=== PATIENT | male | born 1950 | race Caucasian/White ===

== ENCOUNTER 2017-07-09 20:03 | Inpatient (IN) | payer MEDICAID, MEDICARE, OTHER ==
[2017-07-09] MEDS ORDERED: Sodium Bicarbonate (8.4%) 50 Meq Syringe ONE ×2 (20:06→22:36)
[2017-07-09] MEDS: DOBUTamine 500mg/250ml D5W 500 MG/250 ML BAG IV SCH (20:33)
[2017-07-09] MEDS: DOPamine 400mg/250ml D5W 400 MG/250 ML BAG IV PRN (20:33)
[2017-07-09 20:48] LABS: ARTERIAL BLOOD GAS HCO3 5.8 mmol/L (21-28); ARTERIAL BLOOD GAS O2 SAT 84.9 % (95-98); ARTERIAL BLOOD GAS PCO2 74 mm/Hg (35-45); ARTERIAL BLOOD GAS PH 6.81 (7.35-7.45); ARTERIAL BLOOD GAS PO2 66 mm/Hg (80-100); ARTERIAL BLOOD GAS TCO2 14.1 mmol/L (22-28)
--- NOTE | 2017-07-09 20:48 | C.PDOC ---
History Of Present Illness <Ginger Chaney - Last Filed: 07/09/17 22:33> <Ricci Mcclain - Last Filed: 07/09/17 22:41> pt found unresponsive on the street. ems was called. BLS came and started cpr. No shocks given. In ed pt was asystolic. As per daughter pt was on his way to pickle processor her daugther and never showed up. Some one on the street asked if he was ok, and he stated he was short of breath.No other info available at the present time. Police initiated the cpr before bls showed up (Ricci Mcclain) <Ginger Chaney - Last Filed: 07/09/17 22:33> History Per: EMS Reason For Code Blue: Full Arrest Circumstances: Brought To ED By EMS Arrest Witnessed By: No One CPR Initiated Prior To MD Arrival?: Yes Down-Time Before ACLS: Mins (40) Treatment Initiated Prior To MD Arrival: Yes: CPR, BVM Ventilations - Initial Findings Mentation: Unresponsive Respirations: None (Assisted) Pulse: None Rhythm: Asystole <Ricci Mcclain - Last Filed: 07/09/17 22:41> Time Seen by Provider: 07/09/17 20:03 Chief Complaint (Nursing): Cardiac Arrest Past Medical History Reviewed: Historical Data, Nursing Documentation, Vital Signs - Medical History PMH: CAD, CHF, Diabetes (type 2), HTN, Sleep Apnea (Last sleep study 2009) Surgical History: Coronary Stent (January 2013, BEBETO to RCA) Family History: States: No Known Family Hx - Social History Hx Tobacco Use: No Hx Alcohol Use: No Hx Substance Use: No - Immunization History Hx Tetanus Toxoid Vaccination: No Hx Influenza Vaccination: No Hx Pneumococcal Vaccination: No <Ricci Mcclain - Last Filed: 07/09/17 22:41> Vital Signs: Last Vital Signs Temp Pulse 59 L 07/09/17 21:38 Resp 15 07/09/17 21:38 BP 105/37 L 07/09/17 21:38 Pulse Ox 100 07/09/17 21:38 - [facility] Procedures INJECT ANTICOAGULANT (02/11/13) INSERTION OF ONE VASCULAR STENT (02/11/13) INSRT OF DRUG-ELUTING CORON ARTERY STENTS(S) (02/11/13) LEFT HEART CARDIAC CATH (02/07/13) LT HEART ANGIOCARDIOGRAM (02/07/13) PERCUTANEOUS TRANSLUMINAL CORONARY ANGIOPLASTY [PTCA] (02/11/13) PROCEDURE ON SINGLE VESSEL (02/11/13) VACCINATION NEC (02/07/13) Review Of Systems Review Of Systems: ROS cannot be obtained secondary to pt's inabilty to answer questions. <Ricci Mcclain - Last Filed: 07/09/17 22:41> Physical Exam - Physical Exam Appears: In Acute Distress Skin: Pale Head: Normacephalic Eye(s): bilateral: Other (fixed, dilated) Nose: Normal Neck: Supple Chest: Symmetrical Cardiovascular: Other (asystole) Respiratory: Other (no spontaneous resp) Gastrointestinal/Abdominal: Soft, Distention Back: Normal Inspection Extremity: Pedal Edema Extremity: Bilateral: Atraumatic Neurological/Psych: Other (unresponsive, ) Gait: Unable To Assess <Ricci Mcclain - Last Filed: 07/09/17 22:41> ED Course And Treatment - Laboratory Results Result Diagrams: 07/09/17 20:55 07/09/17 20:55 <Ginger Chaney - Last Filed: 07/09/17 22:33> - Laboratory Results Result Diagrams: 07/09/17 20:55 07/09/17 20:55 ECG: Interpreted By Me, Viewed By Me ECG Rhythm: Nonspecific Changes O2 Sat by Pulse Oximetry: 0 Pulse Ox Interpretation: Abnormal - Radiology CXR: Interpreted by Me, Viewed By Me Progress Note: see code sheet. spoke with jose alfredo . is aware of pt's critical condition. spoke with dr holbrook- will come and see the pt in the ed. spoke with dr norton. will see the pt. placed right humeral head IO without any difficulty. repeat cxr ij in olace no pneumo <Ricci Mcclain - Last Filed: 07/09/17 22:41> Endotracheal Intubation - Endotracheal Intubation Intubated With ETT Size: 75 Blade Type Used: Curved Indication: Respiratory Failure Intubated: Orally Pre-Intubation Airway Assessment: Ventilated And Oxygenated Post-Intubation Assessment: ETT Secured AT (cm): (23), Breath Sounds Equal Bilat , Placement Confirmed Via CXR, Color Change W/End Tidal CO2 Detector, Oxygen Saturation: (100) <Ricci Mcclain - Last Filed: 07/09/17 22:41> Central Line Placement - Central Line Placement Indication: Emergent IV Access Central Line Placement: Right: Internal Jugular The Area Was Thoroughly Prepared With: Chlorhexidine Procedure: Triple Lumen, Placed Using Standard Seldinger Technique, Catheter Was Sewn Into Place, Sterile Dressing Placed Over Line, Procedure Tolerated Well , CXR Ordered To Confirm Placement <Ginger Chaney - Last Filed: 07/09/17 22:33> Disposition <Ginger Chaney - Last Filed: 07/09/17 22:33> Discussed With Dr.: Diana Norton Comment: accepted the pt on her servie and took over the care at 9:17 PM Doctor Will See Patient In The: ED Counseled Patient/Family Regarding: Studies Performed - Disposition Disposition Time: :41 <Ricci Mcclain - Last Filed: 07/09/17 22:41> - Disposition Disposition: HOSPITALIZED Condition: CRITICAL - Clinical Impression Clinical Impression: Cardiac arrest, Pulmonary edema Critical Care Time - Critical Care Note Total Time (in mins): 60 Documented critical care: time excludes all time spent performing seperately billable procedures. <Ricci Mcclain - Last Filed: 07/09/17 22:41> Decision To Admit <Ginger Chaney - Last Filed: 07/09/17 22:33> - Pt Status Changed To: Hospital Disposition Of: Inpatient - Admit Certification Admit to Inpatient:: After my assessment, the patient will require hospitalization for at least two midnights. This is because of the severity of symptoms shown, intensity of services needed, and/or the medical risk in this patient being treated as an outpatient. - InPatient: Physician Admission Certification:: After my assessment, the patient will require hospitalization for at least two midnights. This is because of the severity of symptoms shown, intensity of services needed, and/or the medical risk in this patient being treated as an outpatient. - . Bed Request Type: ICU Admitting Physician: Diana Norton <Ricci Mcclain - Last Filed: 07/09/17 22:41> - . Patient Diagnosis: Cardiac arrest, Pulmonary edema
[2017-07-09 20:58] LABS: BASO % 0.6 % (0.0-2.0); EOS # 0.4 K/uL (0.0-0.7); EOS % 4.6 % (0.0-4.0); HEMOGLOBIN 9.3 g/dL (12.0-18.0); LYMPH # 3.3 K/uL (1.0-4.3); LYMPH % 38.3 % (20.0-40.0); MEAN CELL VOLUME 85.4 fL (80.0-94.0); MEAN CORPUSCULAR HEMOGLOBIN 25.6 pg (27.0-31.0); MEAN PLATELET VOLUME 7.9 fL (7.2-11.7); MONO # 0.4 K/uL (0.0-0.8); MONO % 4.9 % (0.0-10.0); NEUT # 4.5 K/uL (1.8-7.0); NEUT % 51.6 % (50.0-75.0); NRBC % 0.2 % (0.0-2.0); RBC 3.64 Mil/uL (4.40-5.90); RED CELL DISTRIBUTION WIDTH 16.8 % (11.5-14.5); WHITE BLOOD COUNT 8.7 K/uL (4.8-10.8)
[2017-07-09 21:07] LABS: INR 1.1; PROTHROMBIN TIME 12.6 SECONDS (9.7-12.2)
[2017-07-09 21:22] LABS: ALT/SGPT 225 U/L (21-72); AST/SGOT 225 U/L (17-59); BLOOD UREA NITROGEN 41 mg/dL (9-20); CALCIUM 7.2 mg/dl (8.6-10.4); GFR AFRICAN-AMERICAN 46; GFR NON-AFRICAN AMERICAN 38; HDL CHOLESTEROL 19 mg/dL (30-70)
[2017-07-09 21:23] LABS: ALB/GLOB RATIO 1.1 (1.0-2.1)
[2017-07-09 21:34] LABS: B-TYPE NATRIURETIC PEPTIDE 3890 pg/mL (0-900); CK-MB 2.32 ng/mL (0.0-3.38); LDL CHOLESTEROL < 30 mg/dL (0-129)
--- NOTE | 2017-07-09 21:40 | CP.CCUPN ---
CCU Subjective - Physician Review Events Since Last Encounter (Free Text): 07/09/17 22:12 The Patient was seen and examined at the bedside, Medical records reviewed, and management issues were discussed and formulated with the house staff. 67 years old male with PMHx of HTN, HLD, DM (type 2), CAD S/p coronary Stent ( January 2013, BEBETO to RCA) and Sleep Apnea (Last sleep study 2009) Who found unresponsive on the street, 911 called by bystanders. As per ER records, Someone on the street asked if he was ok, and he stated he was short of breath. As per daughter pt was on his way to pick up operator her daugther and never showed up. BLS came and started CPR, No shocks or medications given. In ED patient was asystolic, CPR/ACLS initiated, he was orally intubated, Endotracheal tube 7.5, 23 at the lip line ROSC in 10 minutes Upon my arrival to ER, he is totally unresponsive to all stimuli, comatose, Patient very hypotensive despite being on large dose of 2 vasopressors, central line placed R IJ. Patient will have Head CT scan as well as chest/Abd/Pelvis then admitted to the ICU for further managements. Discussed with the family in details diagnosis, treatment plans and alternatives , Went over rationale, procedure, potential risks, recovery etc CCU Objective - Vital Signs / Intake & Output Vital Signs (Last 4 hours): Vital Signs Pulse Resp BP Pulse Ox 07/09/17 21:20 0 L 07/09/17 20:12 0 L 0 L 0/0 L 0 L Intake and Output (Last 8hrs): Intake & Output 07/09/17 07/09/17 07/09/17 06:59 14:59 22:59 Weight 172 lb - Physical Exam Physical Exam Limitations: Positive for: Altered Mental Status, Clinical Condition, Uncooperative Head: Positive for: Atraumatic, Normocephalic Pupils: Positive for: Non-Reactive. Negative for: Pinpoint Extroacular Muscles: Positive for: EOMI. Negative for: Gaze Palsy Conjunctiva: Positive for: Normal. Negative for: Injected, Icteric Mouth: Positive for: Moist Mucous Membranes Nose (Internal): Positive for: Normal Inspection Neck: Positive for: JVD. Negative for: MIDLINE TENDERNESS, Lymphadenopathy Respiratory/Chest: Positive for: Decreased Breath Sounds, Rales. Negative for: Clear to Auscultation, Wheezes, Tachypneic Cardiovascular: Positive for: Regular Rate and Rhythm, Normal S1, S2, Peripheal Pulses Present, Bradycardic. Negative for: Murmurs, Tachycardic Abdomen: Positive for: Distention, Normal Bowel Sounds. Negative for: Tenderness, Peritoneal Signs Upper Extremity: Positive for: Normal Inspection, Capillary Refill < 2s Lower Extremity: Positive for: Edema, Capillary Refill < 2 s Neurological: Positive for: Other (Patient unresponsive to painful stimuli) - Medications Active Medications: Active Medications Generic Name Dose Route Start Last Admin Trade Name Freq PRN Reason Stop Dose Admin Dobutamine HCl/Dextrose 500 mg in 250 mls @ 46.811 mls/hr 07/09/17 21:30 Dobutamine/Dextrose 5% 500mg/250ml IV .Q5H21M GABY 20 MCG/KG/MIN Dopamine HCl/Dextrose 400 mg in 250 mls @ 58.514 mls/hr 07/09/17 21:20 Dopamine 400mg/250ml D5w IV .Q4H17M PRN TITRATE PER MD ORDER 20 MCG/KG/MIN - Patient Studies Lab Studies: Lab Studies 07/09/17 07/09/17 07/09/17 Range/Units 20:55 20:55 20:55 WBC (4.8-10.8) K/uL RBC (4.40-5.90) Mil/uL Hgb (12.0-18.0) g/dL Hct (35.0-51.0) % MCV (80.0-94.0) fL MCH (27.0-31.0) pg MCHC (33.0-37.0) g/dL RDW (11.5-14.5) % Plt Count (130-400) K/uL MPV (7.2-11.7) fL Neut % (Auto) (50.0-75.0) % Lymph % (Auto) (20.0-40.0) % [place] % (Auto) (0.0-10.0) % Eos % (Auto) (0.0-4.0) % Baso % (Auto) (0.0-2.0) % Neut # (1.8-7.0) K/uL Lymph # (1.0-4.3) K/uL [place] # (0.0-0.8) K/uL Eos # (0.0-0.7) K/uL Baso # (0.0-0.2) K/uL PT 12.6 H (9.7-12.2) SECONDS INR 1.1 APTT 42 H (21-34) SECONDS Puncture Site pCO2 (35-45) mm/Hg pO2 (80-100) mm/Hg HCO3 (21-28) mmol/L ABG pH (7.35-7.45) ABG Total CO2 (22-28) mmol/L ABG O2 Saturation (95-98) % ABG Base Excess (-2.0-3.0) mmol/L Yordy Test ABG Potassium (3.6-5.2) mmol/L A-a O2 Difference mm/Hg Respiratory Index Sodium 138 (132-148) mmol/l Chloride 109 H (98-107) mmol/L Glucose (75-110) mg/dl Lactate (0.7-2.1) mmol/L Vent Mode Mechanical Rate FiO2 % Tidal Volume PEEP Crit Value Called To Crit Value Called By Crit Value Read Back Blood Gas Notified Time Potassium 5.7 H (3.6-5.2) mmol/L Carbon Dioxide 13 L (22-30) mmol/L Anion Gap 22 H (10-20) BUN 41 H (9-20) mg/dL Creatinine 1.8 H (0.8-1.5) mg/dL Est GFR ( Amer) 46 Est GFR (Non-Af Amer) 38 POC Glucose (mg/dL) (65-110) mg/dL Random Glucose 124 H (75-110) mg/dL Hemoglobin A1c 5.3 (4.2-6.5) % Calcium 7.2 L (8.6-10.4) mg/dl Total Bilirubin 0.4 (0.2-1.3) mg/dL AST 225 H (17-59) U/L ALT 225 H D (21-72) U/L Alkaline Phosphatase 77 (38-126) U/L Total Creatine Kinase 76 (55-170) U/L Total Protein 5.8 L (6.3-8.3) g/dL Albumin 3.0 L (3.5-5.0) g/dL Globulin 2.8 (2.2-3.9) gm/dL Albumin/Globulin Ratio 1.1 (1.0-2.1) Triglycerides 96 (0-149) mg/dL Cholesterol 58 (0-199) mg/dL HDL Cholesterol 19 L (30-70) mg/dL Arterial Blood Potassium (3.6-5.2) mmol/L 07/09/17 07/09/17 07/09/17 Range/Units 20:55 20:44 20:11 WBC 8.7 (4.8-10.8) K/uL RBC 3.64 L (4.40-5.90) Mil/uL Hgb 9.3 L (12.0-18.0) g/dL Hct 31.1 L (35.0-51.0) % MCV 85.4 (80.0-94.0) fL MCH 25.6 L (27.0-31.0) pg MCHC 30.0 L (33.0-37.0) g/dL RDW 16.8 H (11.5-14.5) % Plt Count 214 D (130-400) K/uL MPV 7.9 (7.2-11.7) fL Neut % (Auto) 51.6 (50.0-75.0) % Lymph % (Auto) 38.3 (20.0-40.0) % [place] % (Auto) 4.9 (0.0-10.0) % Eos % (Auto) 4.6 H (0.0-4.0) % Baso % (Auto) 0.6 (0.0-2.0) % Neut # 4.5 (1.8-7.0) K/uL Lymph # 3.3 (1.0-4.3) K/uL [place] # 0.4 (0.0-0.8) K/uL Eos # 0.4 (0.0-0.7) K/uL Baso # 0.0 (0.0-0.2) K/uL PT (9.7-12.2) SECONDS INR APTT (21-34) SECONDS Puncture Site Art pCO2 74 H* (35-45) mm/Hg pO2 66 L (80-100) mm/Hg HCO3 5.8 L* (21-28) mmol/L ABG pH 6.81 L* (7.35-7.45) ABG Total CO2 14.1 L (22-28) mmol/L ABG O2 Saturation 84.9 L (95-98) % ABG Base Excess -23.5 L (-2.0-3.0) mmol/L Yordy Test Na ABG Potassium 5.8 H (3.6-5.2) mmol/L A-a O2 Difference 555.0 mm/Hg Respiratory Index 8.4 Sodium 141.0 (132-148) mmol/l Chloride 113.0 H (98-107) mmol/L Glucose 132 H (75-110) mg/dl Lactate 9.9 H* (0.7-2.1) mmol/L Vent Mode Prvc Mechanical Rate 16 FiO2 100.0 % Tidal Volume 500 PEEP 5 Crit Value Called To Sarahi keith md Crit Value Called By Constance Crit Value Read Back Y Blood Gas Notified Time 2047 Potassium (3.6-5.2) mmol/L Carbon Dioxide (22-30) mmol/L Anion Gap (10-20) BUN (9-20) mg/dL Creatinine (0.8-1.5) mg/dL Est GFR ( Amer) Est GFR (Non-Af Amer) POC Glucose (mg/dL) 213 H (65-110) mg/dL Random Glucose (75-110) mg/dL Hemoglobin A1c (4.2-6.5) % Calcium (8.6-10.4) mg/dl Total Bilirubin (0.2-1.3) mg/dL AST (17-59) U/L ALT (21-72) U/L Alkaline Phosphatase (38-126) U/L Total Creatine Kinase (55-170) U/L Total Protein (6.3-8.3) g/dL Albumin (3.5-5.0) g/dL Globulin (2.2-3.9) gm/dL Albumin/Globulin Ratio (1.0-2.1) Triglycerides (0-149) mg/dL Cholesterol (0-199) mg/dL HDL Cholesterol (30-70) mg/dL Arterial Blood Potassium 5.8 H (3.6-5.2) mmol/L Laboratory Results - last 24 hr 01/11/18 01/11/18 01/11/18 20:11 20:44 20:55 WBC 8.7 RBC 3.64 L Hgb 9.3 L Hct 31.1 L MCV 85.4 MCH 25.6 L MCHC 30.0 L RDW 16.8 H Plt Count 214 D MPV 7.9 Neut % (Auto) 51.6 Lymph % (Auto) 38.3 [place] % (Auto) 4.9 Eos % (Auto) 4.6 H Baso % (Auto) 0.6 Neut # 4.5 Lymph # 3.3 [place] # 0.4 Eos # 0.4 Baso # 0.0 PT INR APTT Puncture Site Art pCO2 74 H* pO2 66 L HCO3 5.8 L* ABG pH 6.81 L* ABG Total CO2 14.1 L ABG O2 Saturation 84.9 L ABG Base Excess -23.5 L Yordy Test Na ABG Potassium 5.8 H A-a O2 Difference 555.0 Respiratory Index 8.4 Sodium 141.0 Chloride 113.0 H Glucose 132 H Lactate 9.9 H* Vent Mode Prvc Mechanical Rate 16 FiO2 100.0 Tidal Volume 500 PEEP 5 Crit Value Called To Sarahi keith md Crit Value Called By Constance Crit Value Read Back Y Blood Gas Notified Time 2047 Potassium Carbon Dioxide Anion Gap BUN Creatinine Est GFR ( Amer) Est GFR (Non-Af Amer) POC Glucose (mg/dL) 213 H Random Glucose Hemoglobin A1c Calcium Total Bilirubin AST ALT Alkaline Phosphatase Total Creatine Kinase Total Protein Albumin Globulin Albumin/Globulin Ratio Triglycerides Cholesterol HDL Cholesterol Arterial Blood Potassium 5.8 H 07/09/17 07/09/17 07/09/17 20:55 20:55 20:55 WBC RBC Hgb Hct MCV MCH MCHC RDW Plt Count MPV Neut % (Auto) Lymph % (Auto) [place] % (Auto) Eos % (Auto) Baso % (Auto) Neut # Lymph # [place] # Eos # Baso # PT 12.6 H INR 1.1 APTT 42 H Puncture Site pCO2 pO2 HCO3 ABG pH ABG Total CO2 ABG O2 Saturation ABG Base Excess Yordy Test ABG Potassium A-a O2 Difference Respiratory Index Sodium 138 Chloride 109 H Glucose Lactate Vent Mode Mechanical Rate FiO2 Tidal Volume PEEP Crit Value Called To Crit Value Called By Crit Value Read Back Blood Gas Notified Time Potassium 5.7 H Carbon Dioxide 13 L Anion Gap 22 H BUN 41 H Creatinine 1.8 H Est GFR ( Amer) 46 Est GFR (Non-Af Amer) 38 POC Glucose (mg/dL) Random Glucose 124 H Hemoglobin A1c 5.3 Calcium 7.2 L Total Bilirubin 0.4 AST 225 H ALT 225 H D Alkaline Phosphatase 77 Total Creatine Kinase 76 Total Protein 5.8 L Albumin 3.0 L Globulin 2.8 Albumin/Globulin Ratio 1.1 Triglycerides 96 Cholesterol 58 HDL Cholesterol 19 L Arterial Blood Potassium EKG/Cardiology Studies: Cardiology / EKG Studies 07/09/17 20:46 ELECTROCARDIOGRAM Stat Comment: Mode Of Transportation: BED Reason For Exam: chest pain Fingerstick Blood Sugar Results: 213 Review of Systems - Review of Systems Systems not reviewed;Unavailable: Intubated Critical Care Progress Note - Extremities/Vascular Does the Patient have a Central Venous Catheter?: Yes Does the Patient need a Central Venous Catheter?: Yes Does the Patient have a Sanabria Catheter?: Yes Does the Patient need a Sanabria Catheter?: Yes Catheter Insertion Criteria: Need for accurate measurement of output in critically ill patient Assessment/Plan (1) Cardiac arrest Current Visit: Yes Status: Acute (2) Pulmonary edema Current Visit: Yes Status: Acute (3) Acute on chronic diastolic CHF (congestive heart failure) Current Visit: No Status: Acute Comment: (4) Prophylactic measure Current Visit: No Status: Acute Comment: Protonix Hold for now, till confirm there is no bleed or trauma (5) Diabetes mellitus Current Visit: No Status: Chronic (6) Hypertension Current Visit: No Status: Chronic (7) Coronary artery disease Current Visit: No Status: Chronic - Assessment and Plan (Free Text) Assessment: Critically ill patient with acute hypoxemic respiratory failure, Respiratory and metabolic acidosis from cardiac arrest, in the sitting of acute pulmonary edema, H/O need to R/O acute TN, also likely SOFY with obesity hypoventilation Worsening renal function with Hyperkalemia, received the hyperkalemia cocktail in ER Admit to ICU for hemodynamic monitoring, mangement of shock (likely cardiogenic ) and further cardiac and neurological work up STAT LABS/LYTES/CBC/Serial cardiac enzymes, XR, EKG Neuro check Q 1H Monitor Respiratory status, full vent support for now IV diuresis if BP permits No need for Antibiotics Monitor urine output Restart outpatient meds BD nebs Q 6H PRN Tight glycemic control, RISS with Coverage Follow up official [place] CT scan Discussed with the family in details diagnosis, treatment plans and alternatives , Cardiology and neurology consult pending further discussion with the family and clinical improvement Code status: Full code Total critical care time 54 minutes
[2017-07-09] MEDS ORDERED: Dextrose 50% SYRINGE Inj (50 ml) IV STA (22:28)
[2017-07-09] MEDS ORDERED: (Novolin R) Insulin Human Regular 100 units/ml vial IV ONE (22:28)
[2017-07-09] MEDS ORDERED: Sodium Bicarbonate (8.4%) 50 Meq Syringe IVP ONE (22:28)
[2017-07-09] MEDS ORDERED: Calcium Gluconate 4.65 mEq/10 ml Inj ONE (22:36)
[2017-07-09] MEDS ORDERED: (Novolin R) Insulin Human Regular 100 units/ml vial ONE (22:37)
[2017-07-09 22:47] LABS: ARTERIAL BLOOD GAS HCO3 16.7 mmol/L (21-28); ARTERIAL BLOOD GAS O2 SAT 98.4 % (95-98); ARTERIAL BLOOD GAS PCO2 31 mm/Hg (35-45); ARTERIAL BLOOD GAS PH 7.29 (7.35-7.45); ARTERIAL BLOOD GAS PO2 82 mm/Hg (80-100); ARTERIAL BLOOD GAS TCO2 15.9 mmol/L (22-28)
[2017-07-09 23:08] VITALS: RESP 18
--- NOTE | 2017-07-10 00:17 | CT ---
EXAM: CT Head Without Intravenous Contrast EXAM DATE/TIME: 07/09/2017 10:25 PM CLINICAL HISTORY: 67 years old, male; Signs and symptoms; Coma or unconsciousness; Additional info: Cardiac arrest TECHNIQUE: Axial computed tomography images of the head/brain without intravenous contrast. All CT scans at this facility use one or more dose reduction techniques, viz.: automated exposure control; ma/kV adjustment per patient size (including targeted exams where dose is matched to indication; i.e. head); or iterative reconstruction technique. COMPARISON: No relevant prior studies available. FINDINGS: Endotracheal tube and feeding tube. There is diffuse loss of lombardi-white matter differentiation and poor visualization of the sulci. The lateral and third ventricles appear slitlike and there is poor visualization of the quadrigeminal plate cistern. These findings all support development of diffuse cerebral edema presumably secondary to the patient's history of cardiac arrest. No intracranial hemorrhage. No extra axial collections. No fluid in the sinuses or mastoid air cells. No depressed fractures. IMPRESSION: Findings as discussed above supportive of diffuse cerebral edema.
--- NOTE | 2017-07-10 00:44 | CT ---
EXAM: CT Abdomen and Pelvis Without Intravenous Contrast CLINICAL HISTORY: 67 years old, male; Pain; Other: Cardiac arrest, cmg; Chest pain TECHNIQUE: Axial computed tomography images of the abdomen and pelvis without intravenous contrast. All CT scans at this facility use one or more dose reduction techniques, viz.: automated exposure control; ma/kV adjustment per patient size (including targeted exams where dose is matched to indication; i.e. head); or iterative reconstruction technique. Coronal and sagittal reformatted images were created and reviewed. COMPARISON: No relevant prior studies available. FINDINGS: The liver, spleen, pancreas are grossly normal. There is slight haziness in the fat adjacent to the gallbladder at least partially due to motion. Conceivably, superimposed mild inflammatory changes would be possible. Clinical correlation recommended. Horseshoe kidney is present. Sanabria catheter. Enlarged prostate. The right colon and transverse colon are dilated with fluid, a finding that can be associated with diarrhea producing enteritis. Clinical correlation recommended. Left colonic stool is present. IMPRESSION: Right-sided colonic fluid. Enlarged prostate. EXAM: CT Chest Without Intravenous Contrast EXAM DATE/TIME: 07/09/2017 10:42 PM CLINICAL HISTORY: 67 years old, male; Pain; Other: Cardiac arrest, cmg; Chest pain TECHNIQUE: Axial computed tomography images of the chest without intravenous contrast. All CT scans at this facility use one or more dose reduction techniques, viz.: automated exposure control; ma/kV adjustment per patient size (including targeted exams where dose is matched to indication; i.e. head); or iterative reconstruction technique. Coronal and sagittal reformatted images were created and reviewed. COMPARISON: No relevant prior studies available. FINDINGS: Endotracheal tube with tip 4.5 cm above the ilia. Feeding tube with tip in the stomach. Right-sided central venous Catheter in the right atrium. There are small bilateral pleural effusions. There is bilateral lower lung consolidation. There are small scattered groundglass opacity small scattered areas of consolidation in the right upper lung. No aortic aneurysm. Fractures of the right anterior second through seventh ribs and left anterior second through fifth ribs possibly secondary to the patient's recent reported cardiac arrest. IMPRESSION: Bilateral pleural effusions with associated compressive atelectasis. Groundglass opacities in small nodular areas of consolidation in the right upper lung possibly infectious and/or atelectatic etiology. Anterior rib fractures.
[2017-07-10] MEDS: DOPamine 400mg/250ml D5W 400 MG/250 ML BAG IV PRN ×3 (01:22→10:45)
[2017-07-10] MEDS: DOBUTamine 500mg/250ml D5W 500 MG/250 ML BAG IV SCH ×3 (01:23→06:25)
[2017-07-10] MEDS: Phenylephrine 30 MG in Sodium Chloride 0.9% 250 ML IV PRN ×3 (04:15→10:35)
[2017-07-10 05:40] LABS: ARTERIAL BLOOD GAS HCO3 15.1 mmol/L (21-28); ARTERIAL BLOOD GAS O2 SAT 85.7 % (95-98); ARTERIAL BLOOD GAS PCO2 40 mm/Hg (35-45); ARTERIAL BLOOD GAS PO2 50 mm/Hg (80-100); ARTERIAL BLOOD GAS TCO2 16.8 mmol/L (22-28)
[2017-07-10 06:20] LABS: BASO % 0.4 % (0.0-2.0); EOS % 1.3 % (0.0-4.0); LYMPH # 0.4 K/uL (1.0-4.3); LYMPH % 10.7 % (20.0-40.0); MEAN CELL VOLUME 80.9 fL (80.0-94.0); MEAN CORPUSCULAR HEMOGLOBIN 26.3 pg (27.0-31.0); MEAN CORPUSCULAR HGB CONC 32.5 g/dL (33.0-37.0); MEAN PLATELET VOLUME 8.1 fL (7.2-11.7); MONO # 0.1 K/uL (0.0-0.8); MONO % 3.6 % (0.0-10.0); NEUT # 3.2 K/uL (1.8-7.0); NRBC % 0.1 % (0.0-2.0); RBC 3.79 Mil/uL (4.40-5.90); RED CELL DISTRIBUTION WIDTH 16.1 % (11.5-14.5); WHITE BLOOD COUNT 3.8 K/uL (4.8-10.8)
[2017-07-10 06:55] LABS: ALBUMIN 2.6 g/dL (3.5-5.0); CALCIUM 7.3 mg/dl (8.6-10.4); CK-MB 15.2 ng/mL (0.0-3.38); MAGNESIUM 1.9 mg/dL (1.6-2.3); TROPONIN I 0.779 ng/mL (0.00-0.120)
--- NOTE | 2017-07-10 08:47 | RAD ---
PROCEDURE: CHEST RADIOGRAPH, 1 VIEW HISTORY: s/p Right IJ placement COMPARISON: 07/09/2017 FINDINGS: The right IJV line terminates in the SVC. The endotracheal tube terminates 5 cm proximal to the ilia. The nasogastric tube terminates in the stomach LUNGS: There is interval improvement in presumable pulmonary edema with mild residual pulmonary edema and persistent severe pulmonary venous congestion. PLEURA: No pneumothorax or pleural fluid seen. CARDIOVASCULAR: Again seen is moderate cardiomegaly. OSSEOUS STRUCTURES: No significant abnormalities. VISUALIZED UPPER ABDOMEN: Normal. OTHER FINDINGS: None. IMPRESSION: Improving pulmonary edema with persistent pulmonary venous congestion and moderate cardiomegaly. Stable position of support line and tubes. The right IJV line terminates in the SVC.
[2017-07-10] MEDS ORDERED: EPINEPHrine- 1 MG in Sodium Chloride 0.9% 250 ML IV PRN (09:00)
[2017-07-10] MEDS ORDERED: Piperacill/Tazo 2.25gm in Dex 2.25 GM/50 ML BAG IVPB SCH (09:00)
--- NOTE | 2017-07-10 09:02 | RAD ---
HISTORY: intubated, dx. cardiac arrest COMPARISON: 07/09/2017 FINDINGS: The endotracheal tube terminates 4.3 cm proximal to the ilia. The right IJV line terminates in the SVC. The nasogastric tube terminates in the stomach. LUNGS: There is diffuse haziness in both lungs. PLEURA: Suspect layering pleural effusions, no pneumothorax apparent. CARDIOVASCULAR: Normal. OSSEOUS STRUCTURES: No significant abnormalities. VISUALIZED UPPER ABDOMEN: Normal. OTHER FINDINGS: None. IMPRESSION: Diffuse haziness in both lungs concerning for pulmonary edema. Layering pleural effusions. Endotracheal tube and nasogastric tube are stable in position.
--- NOTE | 2017-07-10 09:13 | RAD ---
PROCEDURE: CHEST RADIOGRAPH, 1 VIEW HISTORY: Chest pain COMPARISON: None available. FINDINGS: The endotracheal tube terminates 3.5 cm proximal to the ilia. The nasogastric tube terminates in the stomach LUNGS: There is interval development of confluent airspace disease in the perihilar regions. There is persistent pulmonary venous congestion. PLEURA: No pneumothorax or pleural fluid seen. CARDIOVASCULAR: There is severe cardiomegaly. OSSEOUS STRUCTURES: No significant abnormalities. VISUALIZED UPPER ABDOMEN: Normal. OTHER FINDINGS: None. IMPRESSION: Endotracheal tube terminates 3.5 cm proximal to the ilia. The nasogastric tube terminates in the stomach. Findings are concerning for developing pulmonary edema.
[2017-07-10] MEDS ORDERED: Vancomycin 1 gm/NS 200 ml 1 GM/200 ML BAG IVPB SCH (10:00)
--- NOTE | 2017-07-10 10:39 | CP.CCUPN ---
<Lenore Evans - Last Filed: 07/10/17 11:19> CCU Subjective - Physician Review Subjective (Free Text): 07/10/17 10:[address] Hung Stevenson Patient seen and examined at bedside. Family at bedside. Patient's blood pressure continues to be low even on pressors. Family waiting for brother to arrive to make a decision about code status. 07/10/17 11:10 Patient's sister and brother decided DNR/DNI during a meeting with attending. Family at bedside Critical Care Time Spent (in minutes): 35 CCU Objective - Vital Signs / Intake & Output Vital Signs (Last 4 hours): Vital Signs Pulse Resp BP Pulse Ox 07/10/17 07:37 82 18 52/27 L 84 L 07/10/17 07:31 83 18 52/27 L 84 L Intake and Output (Last 8hrs): Intake & Output 07/09/17 07/10/17 07/10/17 22:59 06:59 14:59 Intake Total 1653.2 841.4 Output Total 5 15 Balance 1648.2 826.4 Weight 172 lb 179 lb 7.3 oz Intake: IV 254 253 Intake, IV Amount 1399.2 588.4 R IJ TLC 140 180 R IJ TLC distal port 428.1 123.2 R IJ TLC medial port 491.5 187.6 R IJ TLC proximal port 339.6 97.6 Right Proximal Port 0 Internal Jugular Right Upper arm 0 Output: Urine 5 15 Urethral (Sanab[place]) 5 15 Other: Voiding Method Indwelling Catheter # Bowel Movements 0 0 - Physical Exam Head: Positive for: Atraumatic, Normocephalic Pupils: Positive for: Non-Reactive. Negative for: Pinpoint Extroacular Muscles: Positive for: EOMI. Negative for: Gaze Palsy Conjunctiva: Positive for: Normal. Negative for: Injected, Icteric Mouth: Positive for: Moist Mucous Membranes Nose (Internal): Positive for: Normal Inspection Neck: Positive for: JVD. Negative for: MIDLINE TENDERNESS, Lymphadenopathy Respiratory/Chest: Positive for: Decreased Breath Sounds, Rales. Negative for: Clear to Auscultation, Wheezes, Tachypneic Cardiovascular: Positive for: Regular Rate and Rhythm, Normal S1, S2, Peripheal Pulses Present, Bradycardic. Negative for: Murmurs, Tachycardic Abdomen: Positive for: Distention, Normal Bowel Sounds. Negative for: Tenderness, Peritoneal Signs Upper Extremity: Positive for: Normal Inspection, Capillary Refill < 2s Lower Extremity: Positive for: Edema, Capillary Refill < 2 s Neurological: Positive for: Other (Patient unresponsive to painful stimuli) - Medications Active Medications: Active Medications Generic Name Dose Route Start Last Admin Trade Name Freq PRN Reason Stop Dose Admin Dobutamine HCl/Dextrose 500 mg in 250 mls @ 46.811 mls/hr 07/09/17 21:30 06/15 06:25 Dobutamine/Dextrose 5% 500mg/250ml IV 46.811 mls/hr .Q5H21M SEPIDEH Administration 20 MCG/KG/MIN Dopamine HCl/Dextrose 400 mg in 250 mls @ 58.514 mls/hr 07/09/17 21:20 05:13 Dopamine 400mg/250ml D5w IV 58.514 mls/hr .Q4H17M PRN Administration TITRATE PER MD ORDER 20 MCG/KG/MIN Norepinephrine Bitartrate 4 mg 254 mls @ 15.24 mls/hr 07/10/17 00:01 07:37 / Sodium Chloride IV 24.61 mcg/min .[id number] PRN 93.8 mls/hr TITRATE PER MD ORDER Administration Protocol 4 MCG/MIN Phenylephrine HCl 30 mg/ 253 mls @ 10.12 mls/hr 07/10/17 03:25 07/10/17 07:31 Sodium Chloride IV 177.86 mcg/min .Q24H PRN 90 mls/hr TITRATE PER MD ORDER Administration Protocol 20 MCG/MIN Epinephrine HCl 1 mg/ Sodium 251 mls @ 60.24 mls/hr 07/10/17 09:00 07/10/17 08:24 Chloride IV 60.24 mls/hr .Q4H10M PRN Administration TITRATE PER MD ORDER 4 MCG/MIN Piperacillin Sod/Tazobactam Sod 2.25 gm in 50 mls @ 100 mls/hr 07/10/17 09:00 Zosyn 2.25 Gm Iv Premix IVPB Q8H SEPIDEH Vancomycin/Sodium Chloride 1 gm in 200 mls @ 133 mls/hr 07/10/17 10:00 Vancomycin 1 Gm/Ns 200 Ml IVPB 07/15/17 10:01 Q12H SEPIDEH Pantoprazole Sodium 40 mg 07/10/17 10:00 Protonix Inj IVP DAILY SEPIDEH - Patient Studies Lab Studies: Lab Studies 07/10/17 07/10/17 07/10/17 Range/Units 06:11 06:11 05:06 WBC 3.8 L D (4.8-10.8) K/uL RBC 3.79 L (4.40-5.90) Mil/uL Hgb 10.0 L (12.0-18.0) g/dL Hct 30.7 L (35.0-51.0) % MCV 80.9 D (80.0-94.0) fL MCH 26.3 L (27.0-31.0) pg MCHC 32.5 L (33.0-37.0) g/dL RDW 16.1 H (11.5-14.5) % Plt Count 219 (130-400) K/uL MPV 8.1 (7.2-11.7) fL Neut % (Auto) 84.0 H (50.0-75.0) % Lymph % (Auto) 10.7 L (20.0-40.0) % Cass % (Auto) 3.6 (0.0-10.0) % Eos % (Auto) 1.3 (0.0-4.0) % Baso % (Auto) 0.4 (0.0-2.0) % Neut # 3.2 (1.8-7.0) K/uL Lymph # 0.4 L (1.0-4.3) K/uL Cass # 0.1 (0.0-0.8) K/uL Eos # 0.0 (0.0-0.7) K/uL Baso # 0.0 (0.0-0.2) K/uL PT (9.7-12.2) SECONDS INR APTT (21-34) SECONDS Puncture Site R bra pCO2 40 (35-45) mm/Hg pO2 50 L (80-100) mm/Hg HCO3 15.1 L (21-28) mmol/L ABG pH 7.20 L (7.35-7.45) ABG Total CO2 16.8 L (22-28) mmol/L ABG O2 Saturation 85.7 L (95-98) % ABG Base Excess -11.8 L (-2.0-3.0) mmol/L Yordy Test Na ABG Potassium 3.5 L (3.6-5.2) mmol/L A-a O2 Difference 613.0 mm/Hg Respiratory Index 12.3 Sodium 137 139.0 (132-148) mmol/l Chloride 111 H 112.0 H (98-107) mmol/L Glucose 182 H (75-110) mg/dl Lactate 3.2 H (0.7-2.1) mmol/L Vent Mode Prvc Mechanical Rate 18 FiO2 100.0 % Tidal Volume 550 PEEP 5 Crit Value Called To Crit Value Called By Crit Value Read Back Blood Gas Notified Time Potassium 3.4 L (3.6-5.2) mmol/L Carbon Dioxide 15 L (22-30) mmol/L Anion Gap 14 (10-20) BUN 56 H (9-20) mg/dL Creatinine 2.3 H (0.8-1.5) mg/dL Est GFR ( Amer) 35 Est GFR (Non-Af Amer) 29 POC Glucose (mg/dL) (65-110) mg/dL Random Glucose 160 H (75-110) mg/dL Hemoglobin A1c (4.2-6.5) % Calcium 7.3 L (8.6-10.4) mg/dl Phosphorus 3.1 (2.5-4.5) mg/dL Magnesium 1.9 (1.6-2.3) mg/dL Total Bilirubin 0.5 (0.2-1.3) mg/dL AST 344 H D (17-59) U/L ALT 327 H D (21-72) U/L Alkaline Phosphatase 83 (38-126) U/L Total Creatine Kinase 604 H (55-170) U/L CK-MB (Mass) 15.2 H (0.0-3.38) ng/mL Troponin I 0.7790 H* (0.00-0.120) ng/mL NT-Pro-B Natriuret Pep (0-900) pg/mL Total Protein 5.3 L (6.3-8.3) g/dL Albumin 2.6 L (3.5-5.0) g/dL Globulin 2.6 (2.2-3.9) gm/dL Albumin/Globulin Ratio 1.0 (1.0-2.1) Triglycerides (0-149) mg/dL Cholesterol (0-199) mg/dL LDL Cholesterol Direct (0-129) mg/dL HDL Cholesterol (30-70) mg/dL Arterial Blood Potassium 3.5 L (3.6-5.2) mmol/L Blood Type Antibody Screen 07/09/17 07/09/17 07/09/17 Range/Units 22:43 20:59 20:55 WBC (4.8-10.8) K/uL RBC (4.40-5.90) Mil/uL Hgb (12.0-18.0) g/dL Hct (35.0-51.0) % MCV (80.0-94.0) fL MCH (27.0-31.0) pg MCHC (33.0-37.0) g/dL RDW (11.5-14.5) % Plt Count (130-400) K/uL MPV (7.2-11.7) fL Neut % (Auto) (50.0-75.0) % Lymph % (Auto) (20.0-40.0) % Cass % (Auto) (0.0-10.0) % Eos % (Auto) (0.0-4.0) % Baso % (Auto) (0.0-2.0) % Neut # (1.8-7.0) K/uL Lymph # (1.0-4.3) K/uL Cass # (0.0-0.8) K/uL Eos # (0.0-0.7) K/uL Baso # (0.0-0.2) K/uL PT (9.7-12.2) SECONDS INR APTT (21-34) SECONDS Puncture Site Lba pCO2 31 L (35-45) mm/Hg pO2 82 (80-100) mm/Hg HCO3 16.7 L (21-28) mmol/L ABG pH 7.29 L (7.35-7.45) ABG Total CO2 15.9 L (22-28) mmol/L ABG O2 Saturation 98.4 H (95-98) % ABG Base Excess -10.4 L (-2.0-3.0) mmol/L Yordy Test Na ABG Potassium 6.6 H* (3.6-5.2) mmol/L A-a O2 Difference 592.0 mm/Hg Respiratory Index 7.2 Sodium 140.0 (132-148) mmol/l Chloride 116.0 H (98-107) mmol/L Glucose 179 H (75-110) mg/dl Lactate 5.0 H* (0.7-2.1) mmol/L Vent Mode Prvc Mechanical Rate 18 FiO2 100.0 % Tidal Volume 550 PEEP 5 Crit Value Called To Marcie katz Crit Value Called By Constance Crit Value Read Back Y Blood Gas Notified Time 2247 Potassium (3.6-5.2) mmol/L Carbon Dioxide (22-30) mmol/L Anion Gap (10-20) BUN (9-20) mg/dL Creatinine (0.8-1.5) mg/dL Est GFR ( Amer) Est GFR (Non-Af Amer) POC Glucose (mg/dL) (65-110) mg/dL Random Glucose (75-110) mg/dL Hemoglobin A1c 5.3 (4.2-6.5) % Calcium (8.6-10.4) mg/dl Phosphorus (2.5-4.5) mg/dL Magnesium (1.6-2.3) mg/dL Total Bilirubin (0.2-1.3) mg/dL AST (17-59) U/L ALT (21-72) U/L Alkaline Phosphatase (38-126) U/L Total Creatine Kinase (55-170) U/L CK-MB (Mass) (0.0-3.38) ng/mL Troponin I (0.00-0.120) ng/mL NT-Pro-B Natriuret Pep (0-900) pg/mL Total Protein (6.3-8.3) g/dL Albumin (3.5-5.0) g/dL Globulin (2.2-3.9) gm/dL Albumin/Globulin Ratio (1.0-2.1) Triglycerides (0-149) mg/dL Cholesterol (0-199) mg/dL LDL Cholesterol Direct (0-129) mg/dL HDL Cholesterol (30-70) mg/dL Arterial Blood Potassium 6.6 H* (3.6-5.2) mmol/L Blood Type O POSITIVE Antibody Screen Negative 07/09/17 07/09/17 07/09/17 Range/Units 20:55 20:55 20:55 WBC 8.7 (4.8-10.8) K/uL RBC 3.64 L (4.40-5.90) Mil/uL Hgb 9.3 L (12.0-18.0) g/dL Hct 31.1 L (35.0-51.0) % MCV 85.4 (80.0-94.0) fL MCH 25.6 L (27.0-31.0) pg MCHC 30.0 L (33.0-37.0) g/dL RDW 16.8 H (11.5-14.5) % Plt Count 214 D (130-400) K/uL MPV 7.9 (7.2-11.7) fL Neut % (Auto) 51.6 (50.0-75.0) % Lymph % (Auto) 38.3 (20.0-40.0) % Cass % (Auto) 4.9 (0.0-10.0) % Eos % (Auto) 4.6 H (0.0-4.0) % Baso % (Auto) 0.6 (0.0-2.0) % Neut # 4.5 (1.8-7.0) K/uL Lymph # 3.3 (1.0-4.3) K/uL Cass # 0.4 (0.0-0.8) K/uL Eos # 0.4 (0.0-0.7) K/uL Baso # 0.0 (0.0-0.2) K/uL PT 12.6 H (9.7-12.2) SECONDS INR 1.1 APTT 42 H (21-34) SECONDS Puncture Site pCO2 (35-45) mm/Hg pO2 (80-100) mm/Hg HCO3 (21-28) mmol/L ABG pH (7.35-7.45) ABG Total CO2 (22-28) mmol/L ABG O2 Saturation (95-98) % ABG Base Excess (-2.0-3.0) mmol/L Yordy Test ABG Potassium (3.6-5.2) mmol/L A-a O2 Difference mm/Hg Respiratory Index Sodium 138 (132-148) mmol/l Chloride 109 H (98-107) mmol/L Glucose (75-110) mg/dl Lactate (0.7-2.1) mmol/L Vent Mode Mechanical Rate FiO2 % Tidal Volume PEEP Crit Value Called To Crit Value Called By Crit Value Read Back Blood Gas Notified Time Potassium 5.7 H (3.6-5.2) mmol/L Carbon Dioxide 13 L (22-30) mmol/L Anion Gap 22 H (10-20) BUN 41 H (9-20) mg/dL Creatinine 1.8 H (0.8-1.5) mg/dL Est GFR ( Amer) 46 Est GFR (Non-Af Amer) 38 POC Glucose (mg/dL) (65-110) mg/dL Random Glucose 124 H (75-110) mg/dL Hemoglobin A1c (4.2-6.5) % Calcium 7.2 L (8.6-10.4) mg/dl Phosphorus (2.5-4.5) mg/dL Magnesium (1.6-2.3) mg/dL Total Bilirubin 0.4 (0.2-1.3) mg/dL AST 225 H (17-59) U/L ALT 225 H D (21-72) U/L Alkaline Phosphatase 77 (38-126) U/L Total Creatine Kinase 76 (55-170) U/L CK-MB (Mass) 2.32 (0.0-3.38) ng/mL Troponin I 0.0230 (0.00-0.120) ng/mL NT-Pro-B Natriuret Pep 3890 H (0-900) pg/mL Total Protein 5.8 L (6.3-8.3) g/dL Albumin 3.0 L (3.5-5.0) g/dL Globulin 2.8 (2.2-3.9) gm/dL Albumin/Globulin Ratio 1.1 (1.0-2.1) Triglycerides 96 (0-149) mg/dL Cholesterol 58 (0-199) mg/dL LDL Cholesterol Direct < 30 (0-129) mg/dL HDL Cholesterol 19 L (30-70) mg/dL Arterial Blood Potassium (3.6-5.2) mmol/L Blood Type Antibody Screen 07/09/17 07/09/17 Range/Units 20:44 20:11 WBC (4.8-10.8) K/uL RBC (4.40-5.90) Mil/uL Hgb (12.0-18.0) g/dL Hct (35.0-51.0) % MCV (80.0-94.0) fL MCH (27.0-31.0) pg MCHC (33.0-37.0) g/dL RDW (11.5-14.5) % Plt Count (130-400) K/uL MPV (7.2-11.7) fL Neut % (Auto) (50.0-75.0) % Lymph % (Auto) (20.0-40.0) % Cass % (Auto) (0.0-10.0) % Eos % (Auto) (0.0-4.0) % Baso % (Auto) (0.0-2.0) % Neut # (1.8-7.0) K/uL Lymph # (1.0-4.3) K/uL Cass # (0.0-0.8) K/uL Eos # (0.0-0.7) K/uL Baso # (0.0-0.2) K/uL PT (9.7-12.2) SECONDS INR APTT (21-34) SECONDS Puncture Site Art pCO2 74 H* (35-45) mm/Hg pO2 66 L (80-100) mm/Hg HCO3 5.8 L* (21-28) mmol/L ABG pH 6.81 L* (7.35-7.45) ABG Total CO2 14.1 L (22-28) mmol/L ABG O2 Saturation 84.9 L (95-98) % ABG Base Excess -23.5 L (-2.0-3.0) mmol/L Yordy Test Na ABG Potassium 5.8 H (3.6-5.2) mmol/L A-a O2 Difference 555.0 mm/Hg Respiratory Index 8.4 Sodium 141.0 (132-148) mmol/l Chloride 113.0 H (98-107) mmol/L Glucose 132 H (75-110) mg/dl Lactate 9.9 H* (0.7-2.1) mmol/L Vent Mode Prvc Mechanical Rate 16 FiO2 100.0 % Tidal Volume 500 PEEP 5 Crit Value Called To Sarahi keith md Crit Value Called By Constance Crit Value Read Back Y Blood Gas Notified Time 2047 Potassium (3.6-5.2) mmol/L Carbon Dioxide (22-30) mmol/L Anion Gap (10-20) BUN (9-20) mg/dL Creatinine (0.8-1.5) mg/dL Est GFR ( Amer) Est GFR (Non-Af Amer) POC Glucose (mg/dL) 213 H (65-110) mg/dL Random Glucose (75-110) mg/dL Hemoglobin A1c (4.2-6.5) % Calcium (8.6-10.4) mg/dl Phosphorus (2.5-4.5) mg/dL Magnesium (1.6-2.3) mg/dL Total Bilirubin (0.2-1.3) mg/dL AST (17-59) U/L ALT (21-72) U/L Alkaline Phosphatase (38-126) U/L Total Creatine Kinase (55-170) U/L CK-MB (Mass) (0.0-3.38) ng/mL Troponin I (0.00-0.120) ng/mL NT-Pro-B Natriuret Pep (0-900) pg/mL Total Protein (6.3-8.3) g/dL Albumin (3.5-5.0) g/dL Globulin (2.2-3.9) gm/dL Albumin/Globulin Ratio (1.0-2.1) Triglycerides (0-149) mg/dL Cholesterol (0-199) mg/dL LDL Cholesterol Direct (0-129) mg/dL HDL Cholesterol (30-70) mg/dL Arterial Blood Potassium 5.8 H (3.6-5.2) mmol/L Blood Type Antibody Screen Laboratory Results - last 24 hr 07/09/17 07/09/17 07/09/17 20:11 20:44 20:55 WBC 8.7 RBC 3.64 L Hgb 9.3 L Hct 31.1 L MCV 85.4 MCH 25.6 L MCHC 30.0 L RDW 16.8 H Plt Count 214 D MPV 7.9 Neut % (Auto) 51.6 Lymph % (Auto) 38.3 Cass % (Auto) 4.9 Eos % (Auto) 4.6 H Baso % (Auto) 0.6 Neut # 4.5 Lymph # 3.3 Cass # 0.4 Eos # 0.4 Baso # 0.0 PT INR APTT Puncture Site Art pCO2 74 H* pO2 66 L HCO3 5.8 L* ABG pH 6.81 L* ABG Total CO2 14.1 L ABG O2 Saturation 84.9 L ABG Base Excess -23.5 L Yordy Test Na ABG Potassium 5.8 H A-a O2 Difference 555.0 Respiratory Index 8.4 Sodium 141.0 Chloride 113.0 H Glucose 132 H Lactate 9.9 H* Vent Mode Prvc Mechanical Rate 16 FiO2 100.0 Tidal Volume 500 PEEP 5 Crit Value Called To Sarahi keith md Crit Value Called By Constance Crit Value Read Back Y Blood Gas Notified Time 2047 Potassium Carbon Dioxide Anion Gap BUN Creatinine Est GFR ( Amer) Est GFR (Non-Af Amer) POC Glucose (mg/dL) 213 H Random Glucose Hemoglobin A1c Calcium Phosphorus Magnesium Total Bilirubin AST ALT Alkaline Phosphatase Total Creatine Kinase CK-MB (Mass) Troponin I NT-Pro-B Natriuret Pep Total Protein Albumin Globulin Albumin/Globulin Ratio Triglycerides Cholesterol LDL Cholesterol Direct HDL Cholesterol Arterial Blood Potassium 5.8 H Blood Type Antibody Screen 07/09/17 07/09/17 07/09/17 20:55 20:55 20:55 WBC RBC Hgb Hct MCV MCH MCHC RDW Plt Count MPV Neut % (Auto) Lymph % (Auto) Cass % (Auto) Eos % (Auto) Baso % (Auto) Neut # Lymph # Cass # Eos # Baso # PT 12.6 H INR 1.1 APTT 42 H Puncture Site pCO2 pO2 HCO3 ABG pH ABG Total CO2 ABG O2 Saturation ABG Base Excess Yordy Test ABG Potassium A-a O2 Difference Respiratory Index Sodium 138 Chloride 109 H Glucose Lactate Vent Mode Mechanical Rate FiO2 Tidal Volume PEEP Crit Value Called To Crit Value Called By Crit Value Read Back Blood Gas Notified Time Potassium 5.7 H Carbon Dioxide 13 L Anion Gap 22 H BUN 41 H Creatinine 1.8 H Est GFR ( Amer) 46 Est GFR (Non-Af Amer) 38 POC Glucose (mg/dL) Random Glucose 124 H Hemoglobin A1c 5.3 Calcium 7.2 L Phosphorus Magnesium Total Bilirubin 0.4 AST 225 H ALT 225 H D Alkaline Phosphatase 77 Total Creatine Kinase 76 CK-MB (Mass) 2.32 Troponin I 0.0230 NT-Pro-B Natriuret Pep 3890 H Total Protein 5.8 L Albumin 3.0 L Globulin 2.8 Albumin/Globulin Ratio 1.1 Triglycerides 96 Cholesterol 58 LDL Cholesterol Direct < 30 HDL Cholesterol 19 L Arterial Blood Potassium Blood Type Antibody Screen 07/09/17 07/09/17 07/10/17 20:59 22:43 05:06 WBC RBC Hgb Hct MCV MCH MCHC RDW Plt Count MPV Neut % (Auto) Lymph % (Auto) Cass % (Auto) Eos % (Auto) Baso % (Auto) Neut # Lymph # Cass # Eos # Baso # PT INR APTT Puncture Site Lba R bra pCO2 31 L 40 pO2 82 50 L HCO3 16.7 L 15.1 L ABG pH 7.29 L 7.20 L ABG Total CO2 15.9 L 16.8 L ABG O2 Saturation 98.4 H 85.7 L ABG Base Excess -10.4 L -11.8 L Yordy Test Na Na ABG Potassium 6.6 H* 3.5 L A-a O2 Difference 592.0 613.0 Respiratory Index 7.2 12.3 Sodium 140.0 139.0 Chloride 116.0 H 112.0 H Glucose 179 H 182 H Lactate 5.0 H* 3.2 H Vent Mode Prvc Prvc Mechanical Rate 18 18 FiO2 100.0 100.0 Tidal Volume 550 550 PEEP 5 5 Crit Value Called To Marcie katz Crit Value Called By Constance Crit Value Read Back Y Blood Gas Notified Time 2248 Potassium Carbon Dioxide Anion Gap BUN Creatinine Est GFR ( Amer) Est GFR (Non-Af Amer) POC Glucose (mg/dL) Random Glucose Hemoglobin A1c Calcium Phosphorus Magnesium Total Bilirubin AST ALT Alkaline Phosphatase Total Creatine Kinase CK-MB (Mass) Troponin I NT-Pro-B Natriuret Pep Total Protein Albumin Globulin Albumin/Globulin Ratio Triglycerides Cholesterol LDL Cholesterol Direct HDL Cholesterol Arterial Blood Potassium 6.6 H* 3.5 L Blood Type O POSITIVE Antibody Screen Negative 07/10/17 07/10/17 06:11 06:11 WBC 3.8 L D RBC 3.79 L Hgb 10.0 L Hct 30.7 L MCV 80.9 D MCH 26.3 L MCHC 32.5 L RDW 16.1 H Plt Count 219 MPV 8.1 Neut % (Auto) 84.0 H Lymph % (Auto) 10.7 L Cass % (Auto) 3.6 Eos % (Auto) 1.3 Baso % (Auto) 0.4 Neut # 3.2 Lymph # 0.4 L Cass # 0.1 Eos # 0.0 Baso # 0.0 PT INR APTT Puncture Site pCO2 pO2 HCO3 ABG pH ABG Total CO2 ABG O2 Saturation ABG Base Excess Yordy Test ABG Potassium A-a O2 Difference Respiratory Index Sodium 137 Chloride 111 H Glucose Lactate Vent Mode Mechanical Rate FiO2 Tidal Volume PEEP Crit Value Called To Crit Value Called By Crit Value Read Back Blood Gas Notified Time Potassium 3.4 L Carbon Dioxide 15 L Anion Gap 14 BUN 56 H Creatinine 2.3 H Est GFR ( Amer) 35 Est GFR (Non-Af Amer) 29 POC Glucose (mg/dL) Random Glucose 160 H Hemoglobin A1c Calcium 7.3 L Phosphorus 3.1 Magnesium 1.9 Total Bilirubin 0.5 AST 344 H D ALT 327 H D Alkaline Phosphatase 83 Total Creatine Kinase 604 H CK-MB (Mass) 15.2 H Troponin I 0.7790 H* NT-Pro-B Natriuret Pep Total Protein 5.3 L Albumin 2.6 L Globulin 2.6 Albumin/Globulin Ratio 1.0 Triglycerides Cholesterol LDL Cholesterol Direct HDL Cholesterol Arterial Blood Potassium Blood Type Antibody Screen EKG/Cardiology Studies: Cardiology / EKG Studies 07/09/17 20:23 EKG [ELECTROCARDIOGRAM] Stat Comment: Mode Of Transportation: BED Reason For Exam: cp 07/09/17 20:46 ELECTROCARDIOGRAM Stat Comment: Mode Of Transportation: BED Reason For Exam: chest pain 07/10/17 07:06 EKG [ELECTROCARDIOGRAM] Stat Comment: Mode Of Transportation: PORTABLE Reason For Exam: Cardiac arrest Fingerstick Blood Sugar Results: 213 Assessment/Plan - Assessment and Plan (Free Text) Assessment: 67 year old male w/ PMHx of HTN, HLD, DM (type 2), CAD s/p coronary stent (Jan 2013, BEBETO to RCA) and sleep apnea (last sleep study 2009) BIBEMS for cardiac arrest. Patient found to be asystolic in ED, CPR/ACLS initiated, orally Intubated. ROSC in 10 minutes. Patient was hypotensive despite being on 2 vasopressors, central line placed in RIJ. Code Status: Full Code Assessment/Plan: Code Status: Full Code Neuro: 07/09 CT Head: Diffuse cerebral edema Sedation: None Cardio: 07/10 EKG STEMI Anterior-septal Hypotensive Dobutamine 500 mg in 250 mls at 46.811 mls/hr Dopamine 400 mg in 250 mls at 58.514 mls/hr Epinephrine 1 mg in 251 mls at 60.24 mls/hr Norepinephrine 4 mg in 254 mls at 15.24 mls/hr Phenylephrine 30 mg in 253 mls at 10.12 mls/hr Troponin: .0230, .7790 CK-MB: 2.32, 15.2 Pro-BNP: 3890 Pulm: Hypoxic 07/10 CXR: Diffuse haziness in both lungs concerning for pulmonary edema. Layering pleural effusions. ETT and NG tube are stable in positions 07/09 CT Chest: ETT with tip 4.5 cm above the ilia. Feeding tube with tip in the stomach. Right-sided CVP in the right atrium. There are small bilateral pleural effusions. There is bilateral lower lung consolidation. There are small scattered ground glass opacity small scattered areas of consolidation in the right upper lung. No aortic aneurysm. 07/10 ABG pCO2 40, pO2 50, HCO3 15.1, pH 7.2, Lactate 3.2 Ventilator PRVC RR 18, FiO2 100%, TV 550, PEEP 5 07/09 ABG pCO2 31, pO2 80, HCO3 16.7, pH 7.29, Lactate 5.0 Ventilator PRVC RR 18, FiO2 100%, TV 550, PEEP 5 07/08 ABG pCO2 74, pO2 66, HCO3 5.8, pH 6.81, Lactate 9.9 Ventilator PRVC RR 16, FiO2 100%, TV 500, PEEP 5 Endo: HA1C: 5.3 Monitor glucose GI: 07/09 CT Abd/pelvis: Right-sided colonic fluid. Enlarged prostate. 07/10 AST 344, ALT 327, Alk Phosp 83 07/09 AST 225, ALT 225, Alk Phosp 77 Lipid panel WNL except HDL 19 : LISA Oliguric (20 ml in last 24 hrs) Monitor urine output, BUN/creatinine 07/10 BUN 56 Creatinine 2.3 07/09 BUN 41 Creatinine 1.8 Heme/Onc: Monitor H/H 07/10 10.0/30.7 MSK:N/A ID: Monitor WBC Zosyn 2.25 mg in 50 mls at 100 mls/hr Q8H Sepideh Vancomycin 1 gm in 200 mls at 133 mls/hr IVP Q12H Sepideh Prophylaxis: DVT: SCDs GI: PPI 40 mg IVP Daily Sepideh discussed with Dr. Hung Evans DO PGY1 - Date & Time Date: 07/10/17 Time: 10:30 <Hung Stevenson - Last Filed: 07/10/17 12:53> CCU Objective - Vital Signs / Intake & Output Vital Signs (Last 4 hours): Vital Signs Pulse Resp BP Pulse Ox 07/10/17 10:46 69 18 48/25 L 84 L 07/10/17 10:45 72 18 48/25 L 85 L 07/10/17 10:35 79 18 44/24 L 89 L Intake and Output (Last 8hrs): Intake & Output 07/09/17 07/10/17 07/10/17 22:59 06:59 14:59 Intake Total 1653.2 2411.6 Output Total 5 15 Balance 1648.2 2396.6 Weight 172 lb 179 lb 7.3 oz Intake: IV 254 760 Intake, IV Amount 1399.2 1651.6 R IJ TLC 140 450 R IJ TLC distal port 428.1 308.0 R IJ TLC medial port 491.5 469.0 R IJ TLC proximal port 339.6 244.0 Right Proximal Port 180.6 Internal Jugular Right Upper arm 0 Oral 0 Output: Urine 5 15 Urethral ([place]) 5 15 Other: Voiding Method Indwelling Catheter # Bowel Movements 0 0 - Medications Active Medications: Active Medications Generic Name Dose Route Start Last Admin Trade Name Freq PRN Reason Stop Dose Admin Dobutamine HCl/Dextrose 500 mg in 250 mls @ 46.811 mls/hr 07/09/17 21:30 06/15 06:25 Dobutamine/Dextrose 5% 500mg/250ml IV 46.811 mls/hr .Q5H21M SEPIDEH Administration 20 MCG/KG/MIN Dopamine HCl/Dextrose 400 mg in 250 mls @ 58.514 mls/hr 07/09/17 21:20 10:45 Dopamine 400mg/250ml D5w IV 58.514 mls/hr .Q4H17M PRN Administration TITRATE PER MD ORDER 20 MCG/KG/MIN Norepinephrine Bitartrate 4 mg 254 mls @ 15.24 mls/hr 07/10/17 00:01 10:46 / Sodium Chloride IV 24.61 mcg/min .[id number] PRN 93.8 mls/hr TITRATE PER MD ORDER Administration Protocol 4 MCG/MIN Phenylephrine HCl 30 mg/ 253 mls @ 10.12 mls/hr 07/10/17 03:25 07/10/17 10:35 Sodium Chloride IV 177.86 mcg/min .Q24H PRN 90 mls/hr TITRATE PER MD ORDER Administration Protocol 20 MCG/MIN Epinephrine HCl 1 mg/ Sodium 251 mls @ 60.24 mls/hr 07/10/17 09:00 07/10/17 08:24 Chloride IV 60.24 mls/hr .Q4H10M PRN Administration TITRATE PER MD ORDER 4 MCG/MIN Piperacillin Sod/Tazobactam Sod 2.25 gm in 50 mls @ 100 mls/hr 07/10/17 09:00 07/10/17 09:15 Zosyn 2.25 Gm Iv Premix IVPB 100 mls/hr Q8H SEPIDEH Administration Vancomycin/Sodium Chloride 1 gm in 200 mls @ 133 mls/hr 07/10/17 10:00 Vancomycin 1 Gm/Ns 200 Ml IVPB 07/15/17 10:01 Q12H SEPIDEH Pantoprazole Sodium 40 mg 07/10/17 10:00 07/10/17 10:38 Protonix Inj IVP 40 mg DAILY SEPIDEH Administration - Patient Studies Lab Studies: Lab Studies 07/10/17 07/10/17 07/10/17 Range/Units 06:11 06:11 05:06 WBC 3.8 L D (4.8-10.8) K/uL RBC 3.79 L (4.40-5.90) Mil/uL Hgb 10.0 L (12.0-18.0) g/dL Hct 30.7 L (35.0-51.0) % MCV 80.9 D (80.0-94.0) fL MCH 26.3 L (27.0-31.0) pg MCHC 32.5 L (33.0-37.0) g/dL RDW 16.1 H (11.5-14.5) % Plt Count 219 (130-400) K/uL MPV 8.1 (7.2-11.7) fL Neut % (Auto) 84.0 H (50.0-75.0) % Lymph % (Auto) 10.7 L (20.0-40.0) % Cass % (Auto) 3.6 (0.0-10.0) % Eos % (Auto) 1.3 (0.0-4.0) % Baso % (Auto) 0.4 (0.0-2.0) % Neut # 3.2 (1.8-7.0) K/uL Lymph # 0.4 L (1.0-4.3) K/uL Cass # 0.1 (0.0-0.8) K/uL Eos # 0.0 (0.0-0.7) K/uL Baso # 0.0 (0.0-0.2) K/uL PT (9.7-12.2) SECONDS INR APTT (21-34) SECONDS Puncture Site R bra pCO2 40 (35-45) mm/Hg pO2 50 L (80-100) mm/Hg HCO3 15.1 L (21-28) mmol/L ABG pH 7.20 L (7.35-7.45) ABG Total CO2 16.8 L (22-28) mmol/L ABG O2 Saturation 85.7 L (95-98) % ABG Base Excess -11.8 L (-2.0-3.0) mmol/L [place] Test Na ABG Potassium 3.5 L (3.6-5.2) mmol/L A-a O2 Difference 613.0 mm/Hg Respiratory Index 12.3 Sodium 137 139.0 (132-148) mmol/l Chloride 111 H 112.0 H (98-107) mmol/L Glucose 182 H (75-110) mg/dl Lactate 3.2 H (0.7-2.1) mmol/L Vent Mode Prvc Mechanical Rate 18 FiO2 100.0 % Tidal Volume 550 PEEP 5 Crit Value Called To Crit Value Called By Crit Value Read Back Blood Gas Notified Time Potassium 3.4 L (3.6-5.2) mmol/L Carbon Dioxide 15 L (22-30) mmol/L Anion Gap 14 (10-20) BUN 56 H (9-20) mg/dL Creatinine 2.3 H (0.8-1.5) mg/dL Est GFR ( Amer) 35 Est GFR (Non-Af Amer) 29 POC Glucose (mg/dL) (65-110) mg/dL Random Glucose 160 H (75-110) mg/dL Hemoglobin A1c (4.2-6.5) % Calcium 7.3 L (8.6-10.4) mg/dl Phosphorus 3.1 (2.5-4.5) mg/dL Magnesium 1.9 (1.6-2.3) mg/dL Total Bilirubin 0.5 (0.2-1.3) mg/dL AST 344 H D (17-59) U/L ALT 327 H D (21-72) U/L Alkaline Phosphatase 83 (38-126) U/L Total Creatine Kinase 604 H (55-170) U/L CK-MB (Mass) 15.2 H (0.0-3.38) ng/mL Troponin I 0.7790 H* (0.00-0.120) ng/mL NT-Pro-B Natriuret Pep (0-900) pg/mL Total Protein 5.3 L (6.3-8.3) g/dL Albumin 2.6 L (3.5-5.0) g/dL Globulin 2.6 (2.2-3.9) gm/dL Albumin/Globulin Ratio 1.0 (1.0-2.1) Triglycerides (0-149) mg/dL Cholesterol (0-199) mg/dL LDL Cholesterol Direct (0-129) mg/dL HDL Cholesterol (30-70) mg/dL Arterial Blood Potassium 3.5 L (3.6-5.2) mmol/L Blood Type Antibody Screen 07/09/17 07/09/17 07/09/17 Range/Units 22:43 20:59 20:55 WBC (4.8-10.8) K/uL RBC (4.40-5.90) Mil/uL Hgb (12.0-18.0) g/dL Hct (35.0-51.0) % MCV (80.0-94.0) fL MCH (27.0-31.0) pg MCHC (33.0-37.0) g/dL RDW (11.5-14.5) % Plt Count (130-400) K/uL MPV (7.2-11.7) fL Neut % (Auto) (50.0-75.0) % Lymph % (Auto) (20.0-40.0) % Cass % (Auto) (0.0-10.0) % Eos % (Auto) (0.0-4.0) % Baso % (Auto) (0.0-2.0) % Neut # (1.8-7.0) K/uL Lymph # (1.0-4.3) K/uL Cass # (0.0-0.8) K/uL Eos # (0.0-0.7) K/uL Baso # (0.0-0.2) K/uL PT (9.7-12.2) SECONDS INR APTT (21-34) SECONDS Puncture Site Lba pCO2 31 L (35-45) mm/Hg pO2 82 (80-100) mm/Hg HCO3 16.7 L (21-28) mmol/L ABG pH 7.29 L (7.35-7.45) ABG Total CO2 15.9 L (22-28) mmol/L ABG O2 Saturation 98.4 H (95-98) % ABG Base Excess -10.4 L (-2.0-3.0) mmol/L Yordy Test Na ABG Potassium 6.6 H* (3.6-5.2) mmol/L A-a O2 Difference 592.0 mm/Hg Respiratory Index 7.2 Sodium 140.0 (132-148) mmol/l Chloride 116.0 H (98-107) mmol/L Glucose 179 H (75-110) mg/dl Lactate 5.0 H* (0.7-2.1) mmol/L Vent Mode Prvc Mechanical Rate 18 FiO2 100.0 % Tidal Volume 550 PEEP 5 Crit Value Called To Marcie katz Crit Value Called By Constance Crit Value Read Back Y Blood Gas Notified Time 2247 Potassium (3.6-5.2) mmol/L Carbon Dioxide (22-30) mmol/L Anion Gap (10-20) BUN (9-20) mg/dL Creatinine (0.8-1.5) mg/dL Est GFR ( Amer) Est GFR (Non-Af Amer) POC Glucose (mg/dL) (65-110) mg/dL Random Glucose (75-110) mg/dL Hemoglobin A1c 5.3 (4.2-6.5) % Calcium (8.6-10.4) mg/dl Phosphorus (2.5-4.5) mg/dL Magnesium (1.6-2.3) mg/dL Total Bilirubin (0.2-1.3) mg/dL AST (17-59) U/L ALT (21-72) U/L Alkaline Phosphatase (38-126) U/L Total Creatine Kinase (55-170) U/L CK-MB (Mass) (0.0-3.38) ng/mL Troponin I (0.00-0.120) ng/mL NT-Pro-B Natriuret Pep (0-900) pg/mL Total Protein (6.3-8.3) g/dL Albumin (3.5-5.0) g/dL Globulin (2.2-3.9) gm/dL Albumin/Globulin Ratio (1.0-2.1) Triglycerides (0-149) mg/dL Cholesterol (0-199) mg/dL LDL Cholesterol Direct (0-129) mg/dL HDL Cholesterol (30-70) mg/dL Arterial Blood Potassium 6.6 H* (3.6-5.2) mmol/L Blood Type O POSITIVE Antibody Screen Negative 07/09/17 07/09/17 07/09/17 Range/Units 20:55 20:55 20:55 WBC 8.7 (4.8-10.8) K/uL RBC 3.64 L (4.40-5.90) Mil/uL Hgb 9.3 L (12.0-18.0) g/dL Hct 31.1 L (35.0-51.0) % MCV 85.4 (80.0-94.0) fL MCH 25.6 L (27.0-31.0) pg MCHC 30.0 L (33.0-37.0) g/dL RDW 16.8 H (11.5-14.5) % Plt Count 214 D (130-400) K/uL MPV 7.9 (7.2-11.7) fL Neut % (Auto) 51.6 (50.0-75.0) % Lymph % (Auto) 38.3 (20.0-40.0) % Cass % (Auto) 4.9 (0.0-10.0) % Eos % (Auto) 4.6 H (0.0-4.0) % Baso % (Auto) 0.6 (0.0-2.0) % Neut # 4.5 (1.8-7.0) K/uL Lymph # 3.3 (1.0-4.3) K/uL Cass # 0.4 (0.0-0.8) K/uL Eos # 0.4 (0.0-0.7) K/uL Baso # 0.0 (0.0-0.2) K/uL PT 12.6 H (9.7-12.2) SECONDS INR 1.1 APTT 42 H (21-34) SECONDS Puncture Site pCO2 (35-45) mm/Hg pO2 (80-100) mm/Hg HCO3 (21-28) mmol/L ABG pH (7.35-7.45) ABG Total CO2 (22-28) mmol/L ABG O2 Saturation (95-98) % ABG Base Excess (-2.0-3.0) mmol/L Yordy Test ABG Potassium (3.6-5.2) mmol/L A-a O2 Difference mm/Hg Respiratory Index Sodium 138 (132-148) mmol/l Chloride 109 H (98-107) mmol/L Glucose (75-110) mg/dl Lactate (0.7-2.1) mmol/L Vent Mode Mechanical Rate FiO2 % Tidal Volume PEEP Crit Value Called To Crit Value Called By Crit Value Read Back Blood Gas Notified Time Potassium 5.7 H (3.6-5.2) mmol/L Carbon Dioxide 13 L (22-30) mmol/L Anion Gap 22 H (10-20) BUN 41 H (9-20) mg/dL Creatinine 1.8 H (0.8-1.5) mg/dL Est GFR ( Amer) 46 Est GFR (Non-Af Amer) 38 POC Glucose (mg/dL) (65-110) mg/dL Random Glucose 124 H (75-110) mg/dL Hemoglobin A1c (4.2-6.5) % Calcium 7.2 L (8.6-10.4) mg/dl Phosphorus (2.5-4.5) mg/dL Magnesium (1.6-2.3) mg/dL Total Bilirubin 0.4 (0.2-1.3) mg/dL AST 225 H (17-59) U/L ALT 225 H D (21-72) U/L Alkaline Phosphatase 77 (38-126) U/L Total Creatine Kinase 76 (55-170) U/L CK-MB (Mass) 2.32 (0.0-3.38) ng/mL Troponin I 0.0230 (0.00-0.120) ng/mL NT-Pro-B Natriuret Pep 3890 H (0-900) pg/mL Total Protein 5.8 L (6.3-8.3) g/dL Albumin 3.0 L (3.5-5.0) g/dL Globulin 2.8 (2.2-3.9) gm/dL Albumin/Globulin Ratio 1.1 (1.0-2.1) Triglycerides 96 (0-149) mg/dL Cholesterol 58 (0-199) mg/dL LDL Cholesterol Direct < 30 (0-129) mg/dL HDL Cholesterol 19 L (30-70) mg/dL Arterial Blood Potassium (3.6-5.2) mmol/L Blood Type Antibody Screen 07/09/17 07/09/17 Range/Units 20:44 20:11 WBC (4.8-10.8) K/uL RBC (4.40-5.90) Mil/uL Hgb (12.0-18.0) g/dL Hct (35.0-51.0) % MCV (80.0-94.0) fL MCH (27.0-31.0) pg MCHC (33.0-37.0) g/dL RDW (11.5-14.5) % Plt Count (130-400) K/uL MPV (7.2-11.7) fL Neut % (Auto) (50.0-75.0) % Lymph % (Auto) (20.0-40.0) % Cass % (Auto) (0.0-10.0) % Eos % (Auto) (0.0-4.0) % Baso % (Auto) (0.0-2.0) % Neut # (1.8-7.0) K/uL Lymph # (1.0-4.3) K/uL Cass # (0.0-0.8) K/uL Eos # (0.0-0.7) K/uL Baso # (0.0-0.2) K/uL PT (9.7-12.2) SECONDS INR APTT (21-34) SECONDS Puncture Site Art pCO2 74 H* (35-45) mm/Hg pO2 66 L (80-100) mm/Hg HCO3 5.8 L* (21-28) mmol/L ABG pH 6.81 L* (7.35-7.45) ABG Total CO2 14.1 L (22-28) mmol/L ABG O2 Saturation 84.9 L (95-98) % ABG Base Excess -23.5 L (-2.0-3.0) mmol/L Yordy Test Na ABG Potassium 5.8 H (3.6-5.2) mmol/L A-a O2 Difference 555.0 mm/Hg Respiratory Index 8.4 Sodium 141.0 (132-148) mmol/l Chloride 113.0 H (98-107) mmol/L Glucose 132 H (75-110) mg/dl Lactate 9.9 H* (0.7-2.1) mmol/L Vent Mode Prvc Mechanical Rate 16 FiO2 100.0 % Tidal Volume 500 PEEP 5 Crit Value Called To Sarahi keith md Crit Value Called By Constance Crit Value Read Back Y Blood Gas Notified Time 2047 Potassium (3.6-5.2) mmol/L Carbon Dioxide (22-30) mmol/L Anion Gap (10-20) BUN (9-20) mg/dL Creatinine (0.8-1.5) mg/dL Est GFR ( Amer) Est GFR (Non-Af Amer) POC Glucose (mg/dL) 213 H (65-110) mg/dL Random Glucose (75-110) mg/dL Hemoglobin A1c (4.2-6.5) % Calcium (8.6-10.4) mg/dl Phosphorus (2.5-4.5) mg/dL Magnesium (1.6-2.3) mg/dL Total Bilirubin (0.2-1.3) mg/dL AST (17-59) U/L ALT (21-72) U/L Alkaline Phosphatase (38-126) U/L Total Creatine Kinase (55-170) U/L CK-MB (Mass) (0.0-3.38) ng/mL Troponin I (0.00-0.120) ng/mL NT-Pro-B Natriuret Pep (0-900) pg/mL Total Protein (6.3-8.3) g/dL Albumin (3.5-5.0) g/dL Globulin (2.2-3.9) gm/dL Albumin/Globulin Ratio (1.0-2.1) Triglycerides (0-149) mg/dL Cholesterol (0-199) mg/dL LDL Cholesterol Direct (0-129) mg/dL HDL Cholesterol (30-70) mg/dL Arterial Blood Potassium 5.8 H (3.6-5.2) mmol/L Blood Type Antibody Screen Laboratory Results - last 24 hr 07/09/17 07/09/17 07/09/17 20:11 20:44 20:55 WBC 8.7 RBC 3.64 L Hgb 9.3 L Hct 31.1 L MCV 85.4 MCH 25.6 L MCHC 30.0 L RDW 16.8 H Plt Count 214 D MPV 7.9 Neut % (Auto) 51.6 Lymph % (Auto) 38.3 Cass % (Auto) 4.9 Eos % (Auto) 4.6 H Baso % (Auto) 0.6 Neut # 4.5 Lymph # 3.3 Cass # 0.4 Eos # 0.4 Baso # 0.0 PT INR APTT Puncture Site Art pCO2 74 H* pO2 66 L HCO3 5.8 L* ABG pH 6.81 L* ABG Total CO2 14.1 L ABG O2 Saturation 84.9 L ABG Base Excess -23.5 L Yordy Test Na ABG Potassium 5.8 H A-a O2 Difference 555.0 Respiratory Index 8.4 Sodium 141.0 Chloride 113.0 H Glucose 132 H Lactate 9.9 H* Vent Mode Prvc Mechanical Rate 16 FiO2 100.0 Tidal Volume 500 PEEP 5 Crit Value Called To Sarahi keith md Crit Value Called By Constance Crit Value Read Back Y Blood Gas Notified Time 2047 Potassium Carbon Dioxide Anion Gap BUN Creatinine Est GFR ( Amer) Est GFR (Non-Af Amer) POC Glucose (mg/dL) 213 H Random Glucose Hemoglobin A1c Calcium Phosphorus Magnesium Total Bilirubin AST ALT Alkaline Phosphatase Total Creatine Kinase CK-MB (Mass) Troponin I NT-Pro-B Natriuret Pep Total Protein Albumin Globulin Albumin/Globulin Ratio Triglycerides Cholesterol LDL Cholesterol Direct HDL Cholesterol Arterial Blood Potassium 5.8 H Blood Type Antibody Screen 07/09/17 07/09/17 07/09/17 20:55 20:55 20:55 WBC RBC Hgb Hct MCV MCH MCHC RDW Plt Count MPV Neut % (Auto) Lymph % (Auto) Cass % (Auto) Eos % (Auto) Baso % (Auto) Neut # Lymph # Cass # Eos # Baso # PT 12.6 H INR 1.1 APTT 42 H Puncture Site pCO2 pO2 HCO3 ABG pH ABG Total CO2 ABG O2 Saturation ABG Base Excess Yordy Test ABG Potassium A-a O2 Difference Respiratory Index Sodium 138 Chloride 109 H Glucose Lactate Vent Mode Mechanical Rate FiO2 Tidal Volume PEEP Crit Value Called To Crit Value Called By Crit Value Read Back Blood Gas Notified Time Potassium 5.7 H Carbon Dioxide 13 L Anion Gap 22 H BUN 41 H Creatinine 1.8 H Est GFR ( Amer) 46 Est GFR (Non-Af Amer) 38 POC Glucose (mg/dL) Random Glucose 124 H Hemoglobin A1c 5.3 Calcium 7.2 L Phosphorus Magnesium Total Bilirubin 0.4 AST 225 H ALT 225 H D Alkaline Phosphatase 77 Total Creatine Kinase 76 CK-MB (Mass) 2.32 Troponin I 0.0230 NT-Pro-B Natriuret Pep 3890 H Total Protein 5.8 L Albumin 3.0 L Globulin 2.8 Albumin/Globulin Ratio 1.1 Triglycerides 96 Cholesterol 58 LDL Cholesterol Direct < 30 HDL Cholesterol 19 L Arterial Blood Potassium Blood Type Antibody Screen 07/09/17 07/09/17 07/10/17 20:59 22:43 05:06 WBC RBC Hgb Hct MCV MCH MCHC RDW Plt Count MPV Neut % (Auto) Lymph % (Auto) Cass % (Auto) Eos % (Auto) Baso % (Auto) Neut # Lymph # Cass # Eos # Baso # PT INR APTT Puncture Site Lba R bra pCO2 31 L 40 pO2 82 50 L HCO3 16.7 L 15.1 L ABG pH 7.29 L 7.20 L ABG Total CO2 15.9 L 16.8 L ABG O2 Saturation 98.4 H 85.7 L ABG Base Excess -10.4 L -11.8 L Yordy Test Na Na ABG Potassium 6.6 H* 3.5 L A-a O2 Difference 592.0 613.0 Respiratory Index 7.2 12.3 Sodium 140.0 139.0 Chloride 116.0 H 112.0 H Glucose 179 H 182 H Lactate 5.0 H* 3.2 H Vent Mode Prvc Prvc Mechanical Rate 18 18 FiO2 100.0 100.0 Tidal Volume 550 550 PEEP 5 5 Crit Value Called To Marcie katz Crit Value Called By Constance Crit Value Read Back Y Blood Gas Notified Time 2242 Potassium Carbon Dioxide Anion Gap BUN Creatinine Est GFR ( Amer) Est GFR (Non-Af Amer) POC Glucose (mg/dL) Random Glucose Hemoglobin A1c Calcium Phosphorus Magnesium Total Bilirubin AST ALT Alkaline Phosphatase Total Creatine Kinase CK-MB (Mass) Troponin I NT-Pro-B Natriuret Pep Total Protein Albumin Globulin Albumin/Globulin Ratio Triglycerides Cholesterol LDL Cholesterol Direct HDL Cholesterol Arterial Blood Potassium 6.6 H* 3.5 L Blood Type O POSITIVE Antibody Screen Negative 07/10/17 07/10/17 06:11 06:11 WBC 3.8 L D RBC 3.79 L Hgb 10.0 L Hct 30.7 L MCV 80.9 D MCH 26.3 L MCHC 32.5 L RDW 16.1 H Plt Count 219 MPV 8.1 Neut % (Auto) 84.0 H Lymph % (Auto) 10.7 L Cass % (Auto) 3.6 Eos % (Auto) 1.3 Baso % (Auto) 0.4 Neut # 3.2 Lymph # 0.4 L Cass # 0.1 Eos # 0.0 Baso # 0.0 PT INR APTT Puncture Site pCO2 pO2 HCO3 ABG pH ABG Total CO2 ABG O2 Saturation ABG Base Excess Yordy Test ABG Potassium A-a O2 Difference Respiratory Index Sodium 137 Chloride 111 H Glucose Lactate Vent Mode Mechanical Rate FiO2 Tidal Volume PEEP Crit Value Called To Crit Value Called By Crit Value Read Back Blood Gas Notified Time Potassium 3.4 L Carbon Dioxide 15 L Anion Gap 14 BUN 56 H Creatinine 2.3 H Est GFR ( Amer) 35 Est GFR (Non-Af Amer) 29 POC Glucose (mg/dL) Random Glucose 160 H Hemoglobin A1c Calcium 7.3 L Phosphorus 3.1 Magnesium 1.9 Total Bilirubin 0.5 AST 344 H D ALT 327 H D Alkaline Phosphatase 83 Total Creatine Kinase 604 H CK-MB (Mass) 15.2 H Troponin I 0.7790 H* NT-Pro-B Natriuret Pep Total Protein 5.3 L Albumin 2.6 L Globulin 2.6 Albumin/Globulin Ratio 1.0 Triglycerides Cholesterol LDL Cholesterol Direct HDL Cholesterol Arterial Blood Potassium Blood Type Antibody Screen EKG/Cardiology Studies: Cardiology / EKG Studies 07/09/17 20:23 EKG [ELECTROCARDIOGRAM] Stat Comment: Mode Of Transportation: BED Reason For Exam: cp 07/09/17 20:46 ELECTROCARDIOGRAM Stat Comment: Mode Of Transportation: BED Reason For Exam: chest pain 07/10/17 07:06 EKG [ELECTROCARDIOGRAM] Stat Comment: Mode Of Transportation: PORTABLE Reason For Exam: Cardiac arrest Assessment/Plan - Assessment and Plan (Free Text) Plan: Patient seen and examiend at bedside with above resident. Patient s/p cardiac arrest. 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 -D/w family regarding poor prognosis and poor neurological outcome -family aware. verbalized understanding -family requested DNR (no chest compressions) -cc time 45 minutes including time spent on discussing goals of care.
[2017-07-10] MEDS ORDERED: Ipratropium 17 mcg/puff-200 puff/12.5 gm HFA Inh IH SCH (10:45)
[2017-07-10 10:46] VITALS: BP 48/25
[2017-07-10 10:48] VITALS: PULSE 69; O2SAT 84
--- NOTE | 2017-07-10 11:42 | CP.PCM.PRO ---
Pronouncement of Note - Clinical Findings Physical Exam: No Response Verbal/Painful Stimuli, Absent Peripheral Pulses{ Carotid & Femoral}, Absent Heart & Breath Sounds, No Pupillary Light Reflex, No Corneal Reflex, Pupils Fixed & Dilated, Absence of Vital Signs - Pronouncement Time Time of Pronouncement of : 11:27 Additional Comments: Patient's family decided DNR DNI, and patient about 30min later - Notifications Pronouncement Notifications: Family Notified, Atending Notified Hydrometeorological Technician Notified: Yes - Autopsy Autopsy Requested: No [place] [id number]
[2017-07-10 11:50] VITALS: TEMP 97.5
== END 2017-07-10 11:27 | DRG 208 ==
LOC: C.ER 20:03 → C.9E 21:14 → C.9I 22:32
PROVIDERS: ADMIT Internal Medicine; ATTEND Internal Medicine
PROC: 0BH17EZ Insertion of Endotracheal Airway into Trachea, Via Natural or Artificial Opening (ICD-10-PCS; principal; 2017-07-09)
PROC: 5A1935Z Respiratory Ventilation, Less than 24 Consecutive Hours (ICD-10-PCS; 2017-07-09)
PROC: 02HV33Z Insertion of Infusion Device into Superior Vena Cava, Percutaneous Approach (ICD-10-PCS; 2017-07-09)
DX: J96.01 Acute respiratory failure with hypoxia (principal); G93.6 Cerebral edema; R57.0 Cardiogenic shock; I50.33 Acute on chronic diastolic (congestive) heart failure; E87.4 Mixed disorder of acid-base balance; G93.1 Anoxic brain damage, not elsewhere classified; E11.9 Type 2 diabetes mellitus without complications; I11.0 Hypertensive heart disease with heart failure; I25.10 Atherosclerotic heart disease of native coronary artery without angina pectoris; Z95.5 Presence of coronary angioplasty implant and graft; E87.5 Hyperkalemia; Z66 Do not resuscitate